=== PATIENT | male | born 1995 | race Caucasian/White ===

== ENCOUNTER 2024-12-11 14:28 | Inpatient (IN) | payer BC ==
[~2024-12-11] VITALS: Ht 180.3 cm; Wt 81.0 kg
[2024-12-11 14:40] VITALS: PULSE 98; RESP 16; O2SAT 98
--- NOTE | 2024-12-11 14:56 | ED.PDOC ---
HPI Comments 29y F who presents to the ED via EMS for chief complaint of palpitations. Pt states he was at home working outside and states while on his tractor, he started to feel his " heart race out of his chest" and felt he was going to pass out and went inside. Pt states he told his mother in law of his symptoms who is nurse and states pt was told to call EMS. EMS arrived on scene and pt was in SVT. EMS arrived on scene and pt was found to be in SVT and after EMS intervention, pt converted to sinus tachycardia and brought to the ED. Pt in the ED, noted to have equal respirations and regular in no noted distress and is alert and oriented x 4 and able to answer all questions. Pt otherwise denies any current chest pain, shortness of breath, nausea, vomiting, fever, cough or chills. Pt states he does have history of anxiety and takes medications for it. Pt otherwise in the ED, has stable vitals. Pt denies any other symptoms at this time. 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 Allergies: Coded Allergies: NO KNOWN ALLERGIES (Unverified , 10/19/13) Information Source: Patient, Emergency Med Personnel Mode of Arrival: EMS Brought in by: EMS Past Medical History PAST MEDICAL HISTORY: Denies Surgical History: Denies all surgeries Constitutional: denies: chills, diaphoresis, fatigue, fever, malaise, sweats, weakness, others EENTM: denies: blurred vision, double vision, ear bleeding, ear discharge, ear drainage, ear pain, ear ringing, eye pain, eye redness, hearing loss, mouth pain, mouth swelling, nasal discharge, nose bleeding, nose congestion, nose pain, photophobia, tearing, throat pain, throat swelling, voice changes, others Respiratory: denies: cough, hemoptysis, orthopnea, SOB at rest, shortness of breath, SOB with excertion, stridor, wheezing, others Cardiovascular: reports: palpitations; denies: chest pain, dizzy spells, diaphoresis, Dyspnea on exertion, edema, irregular heart beat, left arm pain, lightheadedness, PND, syncope, others Gastrointestinal: denies: abdomen distended, abdominal pain, blood streaked bowels, constipated, diarrhea, dysphagia, difficulty swallowing, hematemesis, melena, nausea, poor appetite, poor fluid intake, rectal bleeding, rectal pain, vomiting, others Genitourinary: denies: burning, dysuria, flank pain, frequency, hematuria, inc ontinence, penile discharge, penile sore, pain, testicle pain, testicle swelling, urgency, others Neurological: denies: dizziness, fainting, headache, left sided numbness, left sided weakness, numbness, paresthesia, pre-existing deficit, right sided numbness, right sided weakness, seizure, speech problems, tingling, tremors, weakness, others Musculoskeletal: denies: back pain, gout, joint pain, joint swelling, muscle pain, muscle stiffness, neck pain, others Integumetry: denies: bruises, change in color, change in hair/nails, dryness, laceration, lesions, lumps, rash, wounds, others Allergic/Immunocompromised: denies: Difficulty Healing, Frequent Infections, Hives, Itching, others Hematologic/Lymphatic: denies: anemia, blood clots, easy bleeding, easy bruising, swollen glands, others Endocrine: denies: excessive hunger, excessive sweating, excessive thirst, excessive urination, flushing, intolerance to cold, intolerance to heat, unexplained weight gain, unexplained weight loss, others Psychiatric: denies: anxiety, bipolar disorder, depression, hopeless, panic disorder, schizophrenia, sleepless, suicidal, others All Other Systems: Reviewed and Negative Physical Exam General Appearance: Moderate Distress HEENT: Normal ENT Inspection, Pharynx Normal, TMs Normal Neck: Full Range of Motion, Non-Tender, Normal, Normal Inspection Respiratory: Chest Non-Tender, Lungs Clear, No Accessory Muscle Use, No Respiratory Distress, Normal Breath Sounds Cardiovascular: No Edema, No JVD, No Murmur, No Gallop, Normal Peripheral Pulses, Regular Rate/Rhythm Breast Exam: Deferred Gastrointestinal: No Organomegaly, Non Tender, No Pulsatile Mass, Normal Bowel Sounds, Soft Genitalia: Deferred Pelvic: Deferred Rectal: Deferred Extremities: No calf tenderness, Normal capillary refill, Normal inspection, Normal range of motion, Non-tender, No pedal edema Musculoskeletal : Apperance: Normal Neurologic: Alert, electronics scale tester II-XII nml as Tested, No Motor Deficits, Normal Affect, Normal Mood, No Sensory Deficits Cerebellar Function: Normal Reflexes: Normal Skin: Dry, Normal Color, Warm Peripheral Pulses: 3+ Radial (R), 3+ Radial (L) Lymphatic: No Adenopathy Was a procedure done? Was a procedure done?: No CP Differential Dx Differential Diagnosis: A-fib, A-Flutter, Angina, Anxiety / Panic Attack, Atrial Dysrhythmia, Electrolyte Disorder, PVC's X-Ray, Labs, Meds, VS Vital Signs Date Time Temp Pulse Resp B/P (MAP) Pulse Ox O2 Delivery O2 Flow Rate FiO2 12/11/24 14:53 98.8 109 18 144/98 (113) 99 12/11/24 14:28 108 Lab Test 12/11/24 15:19 Range/Units White Blood Count Pending Red Blood Count Pending Hemoglobin Pending Hematocrit Pending Mean Corpuscular Volume Pending Mean Corpuscular Hemoglobin Pending Mean Corpuscular Hemoglobin Concent Pending Red Cell Distribution Width Pending Platelet Count Pending Mean Platelet Volume Pending Neutrophils (%) (Auto) Pending Lymphocytes (%) (Auto) Pending Monocytes (%) (Auto) Pending Basophils (%) (Auto) Pending Neutrophils # (Auto) Pending Lymphocytes # (Auto) Pending Monocytes # (Auto) Pending Sodium Level Pending Potassium Level Pending Chloride Level Pending Carbon Dioxide Level Pending Anion Gap Pending Blood Urea Nitrogen Pending Creatinine Pending Glomerular Filtration Rate Calc Pending BUN/Creatinine Ratio Pending Serum Glucose Pending Calcium Level Pending Total Bilirubin Pending Aspartate Amino Transferase (AST) Pending Alanine Aminotransferase (ALT) Pending Alkaline Phosphatase Pending Troponin I High Sensitivity Pending Total Protein Pending Albumin Pending CHEST RADIOGRAPH IMPRESSION: 1. No acute cardiopulmonary disease. Patient alert. Complaining have chest discomfort. Was in SVT prior to coming to the ER. Vitals stable. Converted prior to coming to the ER. EKG reviewed does show tachycardia. Vitals stable. Answering all questions. Sinus rhythm. Anxious. History of anxiety. Explained to the patient. Continue cardiac monitoring. Was given aspirin. Time of 1ST Reevaluation: 15:30 Reevaluation 1ST: Unchanged Patient Education/Counseling: Diagnosis, Treatment Family Education/Counseling: No Family Present Departure 1 Departure Time of Disposition: 15:56 Impression: Primary Impression: Supraventricular tachycardia Disposition: ADMITTED INPATIENT Admit to: Med Surg Condition: Guarded Critical Care Note Critical Care Time?: Yes (45 min-critical care time only) Stability Stability form required: No Heart Score Heart Score: Heart Score Response (Comments) Value History Slightly Suspicious 0 EKG Normal 0 Age <45 0 Risk Factors No known risk factors 0 Troponin Normal limit 0 Total 0 I personally scribed for TORREY CAMERON MD ([email or web address]) on 12/11/24 at 14:56. Electronically submitted by Kathrin Zaldivar ([email or web address]). I personally scribed for TORREY CAMERON MD ([email or web address]) on 12/11/24 at 15:02. Electronically submitted by Kathrin Zaldivar ([email or web address]). I personally scribed for TORREY CAMERON MD ([email or web address]) on 12/11/24 at 15:26. Electronically submitted by Kathrin Zaldivar ([email or web address]). TORREY CAMERON MD Dec 11, 2024 14:56
[2024-12-11] MEDS: SODIUM CHLORIDE 0.9% 1,000 ML IV ONE (15:00)
--- NOTE | 2024-12-11 15:13 | DVH ---
CHEST RADIOGRAPH Indication: PALPATTIONS Technique: Single frontal view of the chest was obtained Comparison: None FINDINGS: Lines and Tubes: None Lungs: No focal consolidation. Pleura: No effusion. No pneumothorax. Cardiomediastinal contours: Unremarkable Bones: No acute osseous abnormality. IMPRESSION: 1. No acute cardiopulmonary disease.
[2024-12-11 16:10] LABS: Alanine Aminotransferase 21 U/L (7-40); Albumin 4.5 g/dL (3.2-4.8); Alkaline Phosphatase 46 U/L (46-116); Anion Gap 8 (5-15); Aspartate Aminotransferase 16 U/L (13-40); BUN/Creatinine Ratio 12.7 (10.0-20.0); Bilirubin, Total 0.6 mg/dL (0.2-1.0); Blood Urea Nitrogen 13 mg/dL (9-23); Calcium 9.7 mg/dL (8.7-10.4); Carbon Dioxide 27 mmol/L (20-31); Glucose 88 mg/dL (74-106); Potassium 3.8 mmol/L (3.5-5.1); Sodium 142 mmol/L (136-145); Total Protein 6.6 g/dL (5.7-8.2)
[2024-12-11 16:19] LABS: Chloride 107 mmol/L (98-107)
[2024-12-11 16:25] LABS: Basophils # (auto) 0 10 ^3/uL (0-0.2); Basophils % (auto) 0.4 % (0.0-2.0); Eosinophils # (auto) 0 10 ^3/uL (0-0.8); Eosinophils % (auto) 0.2 % (0.0-7.0); Hematocrit 47.1 % (41.0-53.0); Hemoglobin 16.4 g/dL (13.5-17.5); Lymphocytes % (auto) 20.2 % (10.0-50.0); Mean Corpuscular Hemoglobin 31.2 pg (28.0-32.0); Mean Corpuscular Hgb Conc. 34.7 g/dL (32.0-36.0); Mean Corpuscular Volume 89.9 fL (80.0-100.0); Monocytes # (auto) 0.6 10 ^3/uL (0-1.3); Monocytes % (auto) 6.3 % (0.0-12.0); Neutrophils # (auto) 7.3 10 ^3/uL (1.6-8.6); Neutrophils % (auto) 72.9 % (37.0-80.0); Nucleated Red Blood Cells % 0.2 %; Platelet Count (auto) 226 10^3/uL (140-450); Red Blood Cells 5.24 10^6/uL (4.5-5.90); Red Cell Distribution Width 12.4 % (11.8-14.3)
[2024-12-11] MEDS: ASPirin 81 mg TAB PO ONE (16:30)
[2024-12-11 16:49] LABS: Urine Bacteria None Seen /hpf (None Seen); Urine WBC None Seen /hpf (0 - 3)
[2024-12-11 17:00] LABS: Urine Blood Negative /uL (Negative); Urine Clarity Clear (Clear); Urine Color Colorless (Yellow); Urine Protein, UAD Negative (Negative); Urine Specific Gravity 1.004 (1.001-1.035); Urine Squamous Epithelial Cell None Seen /hpf (<5); Urine Urobilinogen Normal (Negative); Urine pH 6.5 (5.0-9.0)
[2024-12-11] MEDS: ENOXAPARIN SOD 80 MG/0.8ML SYRINGE SC ONE (19:55)
[2024-12-11] MEDS ORDERED: ONDANSETRON HCL 4 MG/2 ML VIAL IV PRN (20:15)
[2024-12-11] MEDS ORDERED: DOCUSATE SOD 100 MG CAP PO PRN (20:15)
[2024-12-11] MEDS ORDERED: HYDROcodone-ACET 5/325MG TAB PO PRN (20:15)
[2024-12-11] MEDS ORDERED: ACETAMINOPHEN 325 MG TAB PO PRN (20:15)
--- NOTE | 2024-12-11 21:19 | DVHHP2 ---
History of Present Illness Reason for Visit: Palpitations History of Present Illness The patient is a 29-year-old male who denies past medical history presented to [facility] ED with complaint of palpitations. Patient reports symptoms started while on his tractor, feels his heart racing of his chest, near syncopal sensation, getting worse that EMS were called. When EMS arrived on the scene, patient was found to be in SVT and subsequently converted after intervention EN route to our facility ED. patient was seen and evaluated in the ED, laboratory data shows WBC 10.0, platelets 226, sodium 142, potassium 3.8, BUN 13, creatinine 1.02, GFR 102, glucose 88, troponin 72, blood pressure 144/98, heart rate 98, temperature 98.2 F, O2 saturation 97% on room air. Chest x-ray show no acute cardiopulmonary disease. Patient was given aspirin one sister mg p.o. x1 please see medication orders section in the computer. On my assessment, patient denies chest pain, no headache, no dizziness, no diaphoresis, no shortness of breath, no nausea, no vomiting, no fever, no chills . Patient was admitted for further evaluation and medical management. Past Medical History Denies past medical history Past Surgical History Denies all surgeries Family History Reviewed, noncontributory to the management of this case. Past Social History The patient lives at home, denies smoking, alcohol or illicit drugs abuse. Review of Systems Constitutional: No: Fever, Chills, Sweats, Weakness, Malaise, Other Eyes: No: Pain, Vision change, Conjunctivae inflammation, Eyelid inflammation, Other, Redness ENT: No: Ear pain, Ear discharge, Nose pain, Nose discharge, Nose congestion, Mouth pain, Mouth swelling, Throat pain, Throat swelling, Other Respiratory: No: Cough, Dry, Shortness of breath, SOB with excertion, Wheezing, Hemoptysis, Pleuritic Pain, Sputum, Wheezing, Other Cardiovascular: Palpitations; No: Chest Pain, Orthopnea, Paroxysmal Noc. Dyspnea, Edema, Lt Headedness, Other Gastrointestinal: No: Nausea, Vomiting, Abdominal Pain, Diarrhea, Constipation, Melena, Hematochezia, Other Genitourinary: No Dysuria, No Frequency, No Incontinence, No Hematuria, No Retention, No Other Musculoskeletal: No: other, neck pain, shoulder pain, arm pain, back pain, hand pain, leg pain, foot pain Skin: No: Rash, Lesions, Jaundice, Bruising, Other Neurological: No: Weakness, Numbness, Incoordination, Change in speech, Confusion, Seizures, Other Allergies: Coded Allergies: NO KNOWN ALLERGIES (Unverified , 10/19/13) Medications Current Medications Medications Dose Ordered Sig/Luanne Route Start Time Stop Time Status Last Admin Dose Admin Aspirin 81 mg DAILY PO 12/12/24 10:00 Sodium Chloride 10 ml Q8HR IV 12/11/24 22:00 Acetaminophen/ Hydrocodone Bitart 1 tab Q4HP PRN PO 12/11/24 20:15 Ondansetron HCl 4 mg Q4HP PRN IV 12/11/24 20:15 Docusate Sodium 100 mg BIDPRN PRN PO 12/11/24 20:15 Acetaminophen 650 mg Q6HP PRN PO 12/11/24 20:15 Exam Vital Signs Vital Signs Date Time Temp Pulse Resp B/P (MAP) Pulse Ox O2 Delivery O2 Flow Rate FiO2 12/11/24 19:30 98 16 121/87 (98) 84 12/11/24 16:00 98.2 98.2 12/11/24 14:40 Room Air* 0 21 General Appearance: Alert, Oriented X3, Cooperative, No acute distress HEENT: Atraumatic, PERRLA, EOMI, Mucous membr. moist/pink Respiratory: Clear to auscultation, Normal air movement Cardiovascular: Regular rate, Normal S1, Normal S2, No murmurs Abdominal: Normal bowel sounds, Soft, No tenderness, No hepatospenomegaly, No masses Extremities: No clubbing, No cyanosis, No edema, Normal pulses, No tenderness/swelling Skin: No rashes, No breakdown, No significant lesion Neuro: Normal gait, Normal speech, Strength at 5/5 X4 ext, Normal tone, Sensation intact, Cranial nerves 3-12 NL, Reflexes 2+ Psych/Mental Status: Mental status NL, Mood NL Labs/Xrays Labs Test 12/11/24 21:10 12/11/24 16:30 12/11/24 15:19 Range/Units Urine Color Colorless Yellow Urine Clarity Clear Clear Urine pH 6.5 5.0-9.0 Urine Specific [place] 1.004 1.001-1.035 Urine Protein Negative Negative Urine Ketones Negative Negative Urine Blood Negative Negative /uL Urine Nitrite Negative Negative Urine Bilirubin Negative Negative Urine Urobilinogen Normal Negative mg/dL Urine Leukocyte Esterase Negative Negative /uL Urine RBC <1 0 - 3 /hpf Urine WBC None seen 0 - 3 /hpf Urine Squamous Epithelial Cells None seen <5 /hpf Urine Bacteria None seen None Seen /hpf Urine Glucose Normal Normal mg/dL White Blood Count 10.0 4.4-10.8 10^3/uL Red Blood Count 5.24 4.5-5.90 10^6/uL Hemoglobin 16.4 13.5-17.5 g/dL Hematocrit 47.1 41.0-53.0 % Mean Corpuscular Volume 89.9 80.0-100.0 fL Mean Corpuscular Hemoglobin 31.2 28.0-32.0 pg Mean Corpuscular Hemoglobin Concent 34.7 32.0-36.0 g/dL Red Cell Distribution Width 12.4 11.8-14.3 % Platelet Count 226 140-450 10^3/uL Mean Platelet Volume 7.3 6.9-10.8 fL Neutrophils (%) (Auto) 72.9 37.0-80.0 % Lymphocytes (%) (Auto) 20.2 10.0-50.0 % Monocytes (%) (Auto) 6.3 0.0-12.0 % Eosinophils (%) (Auto) 0.2 0.0-7.0 % Basophils (%) (Auto) 0.4 0.0-2.0 % Neutrophils # (Auto) 7.3 1.6-8.6 10 ^3/uL Lymphocytes # (Auto) 2.0 0.4-5.4 10 ^3/uL Monocytes # (Auto) 0.6 0-1.3 10 ^3/uL Eosinophils # (Auto) 0 0-0.8 10 ^3/uL Basophils # (Auto) 0 0-0.2 10 ^3/uL Nucleated Red Blood Cells 0.2 % Sodium Level 142 136-145 mmol/L Potassium Level 3.8 3.5-5.1 mmol/L Chloride Level 107 98-107 mmol/L Carbon Dioxide Level 27 20-31 mmol/L Anion Gap 8 5-15 Blood Urea Nitrogen 13 9-23 mg/dL Creatinine 1.02 0.700-1.30 mg/dL Glomerular Filtration Rate Calc 102 >90 mL/min BUN/Creatinine Ratio 12.7 10.0-20.0 Serum Glucose 88 74-106 mg/dL Calcium Level 9.7 8.7-10.4 mg/dL Total Bilirubin 0.6 0.2-1.0 mg/dL Aspartate Amino Transferase (AST) 16 13-40 U/L Alanine Aminotransferase (ALT) 21 7-40 U/L Alkaline Phosphatase 46 46-116 U/L Total Protein 6.6 5.7-8.2 g/dL Albumin 4.5 3.2-4.8 g/dL PATIENT: MAGUE VUONG ACCT: [id number] UNIT: [id number] : 1995 LOC: ER ROOM / BED: / AGE / SEX: 29 / M ADM STATUS: REG ER SERVICE [id number] ORDERING PHYSICIAN: TORREY CAMERON MD PROCEDURE(s): CXRP - CHEST PORTABLE REASON: PALPATTIONS ORDER NUMBER(s): [id number], ACCESSION NUMBER(s): [id number] CHEST RADIOGRAPH Indication: PALPATTIONS Technique: Single frontal view of the chest was obtained Comparison: None FINDINGS: Lines and Tubes: None Lungs: No focal consolidation. Pleura: No effusion. No pneumothorax. Cardiomediastinal contours: Unremarkable Bones: No acute osseous abnormality. IMPRESSION: 1. No acute cardiopulmonary disease. Assessment/Plan Assessment/Plan Palpitations Elevated troponin Supraventricular tachycardia Plan 1. Admit to telemetry unit 2. Breathing treatment 3. Pain control management 4. Management of fluids and electrolytes 5. Consultation for Cardiology 6. Diagnostic tests chest x-ray 7. DVT prophylaxis-on aspirin 8. Repeat labs CBC, CMP in a.m. 9. Continue with current medical management 10. Treatment plan discussed with patient and RN. Patient verbalized understanding. Plan discussed with: Patient, Other (RN) My Orders Orders - VENUS GOLDEN DNP Procedure Category Date Status Time Troponin-I Hs LAB 12/11/24 In Process 20:14 Troponin-I Hs LAB 12/11/24 Logged 23:14 Troponin-I Hs LAB 12/12/24 Verified 02:00 Troponin-I Hs LAB 12/12/24 Verified 06:00 Aspirin Tablet PHA 12/12/24 In Process 10:00 * Cardiology Consult CONS 12/11/24 Transmitted 20:14 Allergies TOM 12/11/24 In Process 20:14 Code Status CODE 12/11/24 Transmitted 20:14 Sodium Chloride Lock PHA 12/11/24 In Process (Saline Lock Ns) 22:00 Oxygen Per Hour RT 12/11/24 Transmitted 20:14 Hydrocodone-Acet PHA 12/11/24 In Process 5/325mg Tab ([place] 20:15 Ondansetron Hcl PHA 12/11/24 In Process (Zofran) 20:15 Docusate Sodium PHA 12/11/24 In Process Capsule (Colace 20:15 Complete Blood Count LAB 12/12/24 Verified 04:00 Comprehensive LAB 12/12/24 Verified Metabolic Panel 04:00 Cardiac DIET 12/12/24 Transmitted Diet-2gna,Lofat,Lochol Breakfast Condition: Serious TOM 12/11/24 In Process 20:14 Acetaminophen Tablet PHA 12/11/24 In Process (Tylenol Tablet) 20:15 Bedrest With Bathroom TOM 12/11/24 In Process Privileg 20:14 Sequential TOM 12/11/24 In Process Compression Device Problem List: (1) Palpitations (2) Elevated troponin (3) Supraventricular tachycardia Date of Service: Dec 11, 2024 Billing Provider: VENUS GOLDEN DNP Common Visit Codes: 10365-[id number] INP/OBS CARE (HIGH) VENUS GOLDEN DNP Dec 11, 2024 21:19
[2024-12-11] MEDS ORDERED: NITROGLYCERIN 0.4 MG SL TAB SL PRN (21:30)
[2024-12-11] MEDS ORDERED: MORPHINE SULFATE INJ 2 MG/ml SYRG IV PRN (21:30)
[2024-12-11] MEDS: SODIUM CHLOR 0.9% PF (SALINE LOCK) 10ML VIAL/SYR IV SCH (22:12)
[2024-12-11] MEDS: PARoxetine 20 MG TAB PO ONE (23:38)
[2024-12-11] MEDS: NICOTINE 21MG/24 HR TOPICAL PATCH TD ONE (23:38)
[2024-12-12] VITALS (7 sets, daily range): BP systolic 119–139; BP diastolic 71–80; PULSE 76–110; RESP 16–18; TEMP 97.8–98; O2SAT 95–98
--- NOTE | 2024-12-12 01:51 | ECG ---
[facility] Test Date: 2024-12-11 Test Time: 14:27:25 Pat Name: MAGUE VUONG Department: er Room: [address] [place] [address] Gender: M Home Health Registered Nurse: zane : 1995 Requested By: TORREY CAMERON Order Number: [id number] Reading MD: Measurements Intervals Hilliards Rate: 108 P: 47 OH: 139 QRS: 49 QRSD: 90 T: 53 QT: 324 QTc: 435 Interpretive Statements Sinus tachycardia Probable left atrial enlargement Please click the below link to view image of tracing.
[2024-12-12 04:36] LABS: Basophils # (auto) 0 10 ^3/uL (0-0.2); Basophils % (auto) 0.4 % (0.0-2.0); Eosinophils # (auto) 0.1 10 ^3/uL (0-0.8); Eosinophils % (auto) 0.8 % (0.0-7.0); Hematocrit 43.4 % (41.0-53.0); Hemoglobin 15.4 g/dL (13.5-17.5); Lymphocytes # (auto) 2.8 10 ^3/uL (0.4-5.4); Lymphocytes % (auto) 35.9 % (10.0-50.0); Mean Corpuscular Hemoglobin 32.3 pg (28.0-32.0); Mean Corpuscular Hgb Conc. 35.5 g/dL (32.0-36.0); Mean Corpuscular Volume 90.8 fL (80.0-100.0); Monocytes # (auto) 0.7 10 ^3/uL (0-1.3); Monocytes % (auto) 8.7 % (0.0-12.0); Neutrophils # (auto) 4.2 10 ^3/uL (1.6-8.6); Neutrophils % (auto) 54.2 % (37.0-80.0); Nucleated Red Blood Cells % 0.1 %; Platelet Count (auto) 208 10^3/uL (140-450); Red Blood Cells 4.78 10^6/uL (4.5-5.90); Red Cell Distribution Width 12.4 % (11.8-14.3); White Blood Cell 7.7 10^3/uL (4.4-10.8)
[2024-12-12 04:51] LABS: Alanine Aminotransferase 19 U/L (7-40); Albumin 4.1 g/dL (3.2-4.8); Anion Gap 6 (5-15); BUN/Creatinine Ratio 12.5 (10.0-20.0); Bilirubin, Total 0.7 mg/dL (0.2-1.0); Blood Urea Nitrogen 13 mg/dL (9-23); Calcium 9.4 mg/dL (8.7-10.4); Carbon Dioxide 27 mmol/L (20-31); Glucose 85 mg/dL (74-106); Sodium 141 mmol/L (136-145); Total Protein 6.3 g/dL (5.7-8.2)
[2024-12-12 04:54] LABS: Alkaline Phosphatase 40 U/L (46-116); Aspartate Aminotransferase 13 U/L (13-40); Chloride 108 mmol/L (98-107)
[2024-12-12] MEDS: NICOTINE 21MG/24 HR TOPICAL PATCH TD SCH (08:49)
[2024-12-12] MEDS: ASPirin 81 mg TAB PO SCH (10:35)
--- NOTE | 2024-12-12 12:06 | DVHSR ---
APPROVED REPORT EXAM: Two-dimensional and M-mode echocardiogram with Doppler and color Doppler. Blood Pressure: 119/71 mmHg INDICATION SVT RISK FACTORS Height: 70, Weight: 178 DIMENSIONS LVDd4.8 (3.8-5.7cm)LA (2D)3.8 (1.9-4.0cm)Aortic Root3.3 (2.0-3.7cm) LVDs3.5 (2.5-4.0cm)LA (MM) (1.9-4.0cm)Aortic Cusp Exc1.9 (1.5-2.0cm) EF (%) 54.0 (55-70%)Rt. Atrium3.8 (1.9-4.0cm)Asc. Aorta cm IVSd1.0 (0.7-1.1cm)RV (D) (1.8-2.4cm) PWd1.1 (0.7-1.1cm) Mitral Valve MitralMitral Stenosis E wave0.68m/sMV Mean GR.mmHg A wave0.52m/sMV Peak GR.mmHg E/A ratio1.32D MVAcm2 DECEL [id number] 1/2 [id number] IVRTmsDop MVA4.29cm2 Aortic Valve Aortic ValveAortic Stenosis V11.07m/Giovany Mean GR.3mmHg V21.25m/Giovany Peak GR.6mmHg LVOT Diameter2.2 (1.8-2.4cm)Doppler AVA3.25cm2 Pulmonic Valve V20.93m/s Conclusion LV EJECTION FRACTION IS 70% NORMAL VALVES NORMAL RV FUNCTION NO EFFUSION
--- NOTE | 2024-12-12 15:25 | DVHINCON2 ---
Date Seen: Dec 12, 2024 Referring Physician Annabelle Reason for Consultation SVT History of Present Illness 29-year-old male with no significant past medical history presents to the hospital with chest pain and palpitations. Patient states he was working out in the [place] on a [place] when he had also an onset of palpitations that continued and transition to chest pressure the noted to be retrosternal, nonradiating, const ant, associated with some shortness of breath. Patient states went inside and was trying to relax and thought it was due to his history of anxiety. Patient had family member come and assess him as they were nurse and noted that his heart rate was too high to be assessed and blood pressure machine was not taking his blood pressure therefore EMS was called. Patient was found to be in SVT and was converted in route to facility possibly with vasovagal maneuvers. Patient states he has been following up with PCP for possible anxiety as he has been having certainly palpitations for the last 6 months. Of note patient states that he has to use high doses of caffeine though stopped approximately 3 months ago. Patient denies any smoking, drinking, or illicit drug use. Patient does note to vaping nicotine. Upon evaluation in the ER patient noted to have troponins initially negative then trending 72, 93, 96, 79, 66. EKG reviewed and shows sinus tachycardia at 108 beats per minute. Past Medical History Denies past medical history. Past Surgical History Denies previous cardiac surgeries Family History Denies pertinent family cardiac history Social History Denies alcohol, smoking tobacco, or illicit drug use, does endorse he vapes nicotine. Allergies: Coded Allergies: NO KNOWN ALLERGIES (Unverified , 10/19/13) Current Medications Current Medications Medications (Trade) Dose Ordered Sig/Luanne Route PRN Reason Start Time Stop Time Status Last Admin Aspirin 81 mg DAILY PO 12/12/24 10:00 12/12/24 10:35 Sodium Chloride (Saline Lock Ns) 10 ml Q8HR IV 12/11/24 22:00 12/12/24 05:42 Acetaminophen/ Hydrocodone Bitart ([place] 5/325MG Tab) 1 tab Q4HP PRN PO MODERATE PAIN (4-6 PAIN SCALE) 12/11/24 20:15 Ondansetron HCl (Zofran) 4 mg Q4HP PRN IV NAUSEA / VOMITING 12/11/24 20:15 Docusate Sodium (Colace Capsule) 100 mg BIDPRN PRN PO FOR CONSTIPATION 12/11/24 20:15 Acetaminophen (Tylenol Tablet) 650 mg Q6HP PRN PO PAIN SCALE 1-3 OR TEMP>100.4 12/11/24 20:15 Nitroglycerin (Ntrostat Sublingual) 0.4 mg Q5MINP PRN SL FOR CHEST PAIN 12/11/24 21:30 Morphine Sulfate 2 mg Q30M PRN IV FOR CHEST PAIN 12/11/24 21:30 Nicotine (Nicoderm 21MG/ 24HR) 1 patch DAILY TD 12/12/24 10:00 Paroxetine HCl (Paxil Tablet) 10 mg HS PO 12/12/24 22:00 Review of Systems Constitutional: No: Fever, Chills, Sweats, Weakness, Malaise, Other Eyes: No: Pain, Vision change, Conjunctivae inflammation, Eyelid inflammation, Other, Redness ENT: No: Ear pain, Ear discharge, Nose pain, Nose discharge, Nose congestion, Mouth pain, Mouth swelling, Throat pain, Throat swelling, Other Respiratory: No: Cough, Dry, Shortness of breath, SOB with exertion, Wheezing, Hemoptysis, Pleuritic Pain, Sputum, Wheezing, Other Cardiovascular: ; No: Chest Pain Palpitations, Orthopnea, Paroxysmal Noc. Dyspnea, Edema, Lt Headedness, Other Gastrointestinal: No: Nausea, Vomiting, Abdominal Pain, Diarrhea, Constipation, Melena, Hematochezia, Other Genitourinary: No Dysuria, No Frequency, No Incontinence, No Hematuria, No Retention, No Other Musculoskeletal: neck pain; No: other, shoulder pain, arm pain, back pain, hand pain, leg pain, foot pain Skin: No: Rash, Lesions, Jaundice, Bruising, Other Neurological: Other (Dizziness, headache.); No: Weakness, Numbness, Incoordination, Change in speech, Confusion, Seizures Vital Signs Vital Signs Date Time Temp Pulse Resp B/P (MAP) Pulse Ox O2 Delivery O2 Flow Rate FiO2 12/12/24 12:42 97.8 76 16 126/71 (89) 98 97.8 12/12/24 07:30 Room Air* 0 21 Physical Exam General appearance: Patient is well-developed, well-nourished, in no acute distress. HEENT: Exam shows: Normocephalic, atraumatic, PERRLA, EOMI Neck: Supple, no bruits Chest: Equal chest excursion bilaterally. Breath sounds normal-no rales or wheezes. Heart: Rhythm: Regular rate; no murmur or gallop Abdomen: Exam shows: Soft, nontender, nondistended Musculoskeletal: No clubbing, no cyanosis, no lower extremity edema Dermatology: Skin warm, moist. Neurological: Exam shows: Alert and oriented x4, normal speech Available prior records, labs, EKG, rhythm strips reviewed and interpreted Labs/Diagnostic Data Labs Test 12/12/24 08:39 12/12/24 08:14 12/12/24 03:22 12/11/24 16:30 Range/Units Thyroid Stimulating Hormone (TSH) 1.02 0.55-4.78 uIU/mL Magnesium Level 1.8 1.6-2.6 mg/dL White Blood Count 7.7 4.4-10.8 10^3/uL Red Blood Count 4.78 4.5-5.90 10^6/uL Hemoglobin 15.4 13.5-17.5 g/dL Hematocrit 43.4 41.0-53.0 % Mean Corpuscular Volume 90.8 80.0-100.0 fL Mean Corpuscular Hemoglobin 32.3 H 28.0-32.0 pg Mean Corpuscular Hemoglobin Concent 35.5 32.0-36.0 g/dL Red Cell Distribution Width 12.4 11.8-14.3 % Platelet Count 208 140-450 10^3/uL Mean Platelet Volume 7.3 6.9-10.8 fL Neutrophils (%) (Auto) 54.2 37.0-80.0 % Lymphocytes (%) (Auto) 35.9 10.0-50.0 % Monocytes (%) (Auto) 8.7 0.0-12.0 % Eosinophils (%) (Auto) 0.8 0.0-7.0 % Basophils (%) (Auto) 0.4 0.0-2.0 % Neutrophils # (Auto) 4.2 1.6-8.6 10 ^3/uL Lymphocytes # (Auto) 2.8 0.4-5.4 10 ^3/uL Monocytes # (Auto) 0.7 0-1.3 10 ^3/uL Eosinophils # (Auto) 0.1 0-0.8 10 ^3/uL Basophils # (Auto) 0 0-0.2 10 ^3/uL Nucleated Red Blood Cells 0.1 % Sodium Level 141 136-145 mmol/L Potassium Level 4.0 3.5-5.1 mmol/L Chloride Level 108 H 98-107 mmol/L Carbon Dioxide Level 27 20-31 mmol/L Anion Gap 6 5-15 Blood Urea Nitrogen 13 9-23 mg/dL Creatinine 1.04 0.700-1.30 mg/dL Glomerular Filtration Rate Calc 100 >90 mL/min BUN/Creatinine Ratio 12.5 10.0-20.0 Serum Glucose 85 74-106 mg/dL Calcium Level 9.4 8.7-10.4 mg/dL Total Bilirubin 0.7 0.2-1.0 mg/dL Aspartate Amino Transferase (AST) 13 13-40 U/L Alanine Aminotransferase (ALT) 19 7-40 U/L Alkaline Phosphatase 40 L 46-116 U/L Troponin I High Sensitivity 66 *H </=54 ng/L Total Protein 6.3 5.7-8.2 g/dL Albumin 4.1 3.2-4.8 g/dL Urine Color Colorless Yellow Urine Clarity Clear Clear Urine pH 6.5 5.0-9.0 Urine Specific [place] 1.004 1.001-1.035 Urine Protein Negative Negative Urine Ketones Negative Negative Urine Blood Negative Negative /uL Urine Nitrite Negative Negative Urine Bilirubin Negative Negative Urine Urobilinogen Normal Negative mg/dL Urine Leukocyte Esterase Negative Negative /uL Urine RBC <1 0 - 3 /hpf Urine WBC None seen 0 - 3 /hpf Urine Squamous Epithelial Cells None seen <5 /hpf Urine Bacteria None seen None Seen /hpf Urine Glucose Normal Normal mg/dL Assessment SVT Mildly elevated troponin Chest pain Palpitation Plan/Recommendation * Likely type 2 CT in setting of SVT. Continue telemetry monitoring. Initiation of metoprolol low dose due to blood pressure, titrate as tolerated. * Echo with preserved LV and RV function, no significant valvular structural abnormalities. * Monitoring electrolytes keep K>4 and mg> 2 * TSH normal. * Follow up outpatient Cardiology for event monitoring. Recommend referral for EP for possible SVT ablation if uncontrolled with medication. Case Discussed with Dr Auguste. There is no further cardiac work-up indicated at this time. Continue recs as above. Outpatient follow-up for continued monitoring and possible EP referral. Recommend continue cessation of high energy drinks/caffeine use. Thank you for allowing us to participate in this patient's care. Will sign off. Critical care, time spent: 40 minutes This medical document was created using an electronic medical record system with voice recognition software and computerized dictation system. Although this document has been carefully reviewed, there might still be some phonetic and typographical errors. Occasional wrong-word or ``sound-alike substitutions may have occurred due to the inherent limitations of voice recognition software. These areas are purely typographical due to imperfections of the software programs and do not reflect any compromise in the patient's medical care. Please read the chart carefully and recognize, using context, where these substitutions have occurred. Thank you for allowing me to participate in the management of this patient. The treatment plan was discussed with and agreed upon by patient/family including requesting consultants and ordering of imaging/procedures. Plan discussed with: Patient NYHA Physical activity limitations: NA Date of Service: Dec 12, 2024 Billing Provider: TALIA VILLEGAS Cardiology Common Codes: [id number] INP/OBS CARE (High), 07078-[id number] CARE 30-74 MIN TALIA VILLEGAS Dec 12, 2024 15:25
[2024-12-12] MEDS ORDERED: MET25T PO (16:18)
[2024-12-12] MEDS: PARoxetine 20 MG TAB PO SCH (20:37)
[2024-12-12] MEDS: METOPROLOL TARTRATE 25 MG TAB PO SCH (20:37)
--- NOTE | 2024-12-12 21:20 | DVHDS2 ---
Discharge Summary Date of Admission Dec 11, 2024 at 21:17 Date of Discharge: Dec 12, 2024 Labs/Diagnostic Data: Laboratory Results Test 12/12/24 08:39 12/12/24 08:14 12/12/24 03:22 12/11/24 16:30 Thyroid Stimulating Hormone (TSH) 1.02 uIU/mL (0.55-4.78) Magnesium Level 1.8 mg/dL (1.6-2.6) White Blood Count 7.7 10^3/uL (4.4-10.8) Red Blood Count 4.78 10^6/uL (4.5-5.90) Hemoglobin 15.4 g/dL (13.5-17.5) Hematocrit 43.4 % (41.0-53.0) Mean Corpuscular Volume 90.8 fL (80.0-100.0) Mean Corpuscular Hemoglobin 32.3 pg (28.0-32.0) Mean Corpuscular Hemoglobin Concent 35.5 g/dL (32.0-36.0) Red Cell Distribution Width 12.4 % (11.8-14.3) Platelet Count 208 10^3/uL (140-450) Mean Platelet Volume 7.3 fL (6.9-10.8) Neutrophils (%) (Auto) 54.2 % (37.0-80.0) Lymphocytes (%) (Auto) 35.9 % (10.0-50.0) Monocytes (%) (Auto) 8.7 % (0.0-12.0) Eosinophils (%) (Auto) 0.8 % (0.0-7.0) Basophils (%) (Auto) 0.4 % (0.0-2.0) Neutrophils # (Auto) 4.2 10 ^3/uL (1.6-8.6) Lymphocytes # (Auto) 2.8 10 ^3/uL (0.4-5.4) Monocytes # (Auto) 0.7 10 ^3/uL (0-1.3) Eosinophils # (Auto) 0.1 10 ^3/uL (0-0.8) Basophils # (Auto) 0 10 ^3/uL (0-0.2) Nucleated Red Blood Cells 0.1 % Sodium Level 141 mmol/L (136-145) Potassium Level 4.0 mmol/L (3.5-5.1) Chloride Level 108 mmol/L (98-107) Carbon Dioxide Level 27 mmol/L (20-31) Anion Gap 6 (5-15) Blood Urea Nitrogen 13 mg/dL (9-23) Creatinine 1.04 mg/dL (0.700-1.30) Glomerular Filtration Rate Calc 100 mL/min (>90) BUN/Creatinine Ratio 12.5 (10.0-20.0) Serum Glucose 85 mg/dL (74-106) Calcium Level 9.4 mg/dL (8.7-10.4) Total Bilirubin 0.7 mg/dL (0.2-1.0) Aspartate Amino Transferase (AST) 13 U/L (13-40) Alanine Aminotransferase (ALT) 19 U/L (7-40) Alkaline Phosphatase 40 U/L (46-116) Troponin I High Sensitivity 66 ng/L (</=54) Total Protein 6.3 g/dL (5.7-8.2) Albumin 4.1 g/dL (3.2-4.8) Urine Color Colorless (Yellow) Urine Clarity Clear (Clear) Urine pH 6.5 (5.0-9.0) Urine Specific [place] 1.004 (1.001-1.035) Urine Protein Negative (Negative) Urine Ketones Negative (Negative) Urine Blood Negative /uL (Negative) Urine Nitrite Negative (Negative) Urine Bilirubin Negative (Negative) Urine Urobilinogen Normal mg/dL (Negative) Urine Leukocyte Esterase Negative /uL (Negative) Urine RBC <1 /hpf (0 - 3) Urine WBC None seen /hpf (0 - 3) Urine Squamous Epithelial Cells None seen /hpf (<5) Urine Bacteria None seen /hpf (None Seen) Urine Glucose Normal mg/dL (Normal) Other Laboratory Tests 12/12/24 03:22 Brief Hx & Hospital Course: 29 M with palpitation, found to be in svt, seen in cardio, started on beta romeo. follow outpatient with cardio and dc clinic. meds sent. Condition at Discharge: Good Final Diagnosis/Problems List SVT Discharge Disposition: Home Discharge Instruct/Medications Diet: Cardiac 2g Na,low cholest Activity: No Restrictions, As Tolerated Follow Up/Referral: cardiology EP Medications: metoprolol 33 Discharge Statement: "Patient was advised to return to the ER or call 911 if any headaches, dizziness, shortness of breath, chest pain, abdominal pain, bleeding, fevers, or worsening of medical condition. Patient was counseled about treatment plan, medications, possible side effects, patientverbalized understanding. All questions were answered to the best of my ability. This discharge took greater then 30 minutes in planning, reviewing documentation, counseling the patient, and discussing with other team members." ASSESSMENT ASSESSMENT Assessment chest pain 2/2 svt tachy induced type 2 MA Date of Service: Dec 12, 2024 Billing Provider: MEKA LINARES MD Common Visit Codes: 38295-SMP/OBS DISCH DAY >30min MEKA LINARES MD Dec 12, 2024 21:20
--- NOTE | 2024-12-12 22:24 | DVHINCON2 ---
Date Seen: Dec 12, 2024 Referring Physician Annabelle Reason for Consultation SVT History of Present Illness This is a 29-year-old male with no significant past medical history presents to the ED with complaints of chest pain and palpitations. Patient states he was working out in the yard on a tractor when he had also an onset of palpitations that continued and transition to chest pressure the noted to be retrosternal, nonradiating, constant, associated with some shortness of breath. Patient states he went inside and was trying to relax and thought it was due to his history of anxiety. Patient had a family member come and assess him as they were a nurse and noted that his heart rate was too high to be assessed and blood pressure machine was not taking his blood pressure therefore EMS was called. Thomas ma was found to be in SVT and was converted in route to facility possibly with vasovagal maneuvers. Patient states he has been following up with PCP for possible anxiety as he has been having certainly palpitations for the last 6 months. Of note patient states that he has to use high doses of caffeine though stopped approximately 3 months ago. Patient denies any smoking, drinking, or illicit drug use. Patient does note to vaping nicotine. Upon evaluation in the ER patient noted to have troponins initially negative then trending 72, 93, 96, 79, 66. EKG reviewed and shows sinus tachycardia at 108 beats per minute. Patient was admitted to the hospital. I am asked to consult on this patient. Family History: Patient reports no known family medical history. Allergies: Coded Allergies: NO KNOWN ALLERGIES (Unverified , 10/19/13) Home Meds Active Scripts Metoprolol Tartrate (Lopressor) 25 Mg Tb, 12.5 MG PO BID for 30 Days, #30 TAB Prov:MEKA LINARES MD 12/12/24 Current Medications Current Medications Medications (Trade) Dose Ordered Sig/Luanne Route PRN Reason Start Time Stop Time Status Last Admin Aspirin 81 mg DAILY PO 12/12/24 10:00 12/12/24 10:35 Sodium Chloride (Saline Lock Ns) 10 ml Q8HR IV 12/11/24 22:00 12/12/24 05:42 Acetaminophen/ Hydrocodone Bitart ([place] 5/325MG Tab) 1 tab Q4HP PRN PO MODERATE PAIN (4-6 PAIN SCALE) 12/11/24 20:15 Ondansetron HCl (Zofran) 4 mg Q4HP PRN IV NAUSEA / VOMITING 12/11/24 20:15 Docusate Sodium (Colace Capsule) 100 mg BIDPRN PRN PO FOR CONSTIPATION 12/11/24 20:15 Acetaminophen (Tylenol Tablet) 650 mg Q6HP PRN PO PAIN SCALE 1-3 OR TEMP>100.4 12/11/24 20:15 Nitroglycerin (Ntrostat Sublingual) 0.4 mg Q5MINP PRN SL FOR CHEST PAIN 12/11/24 21:30 Morphine Sulfate 2 mg Q30M PRN IV FOR CHEST PAIN 12/11/24 21:30 Nicotine (Nicoderm 21MG/ 24HR) 1 patch DAILY TD 12/12/24 10:00 Paroxetine HCl (Paxil Tablet) 10 mg HS PO 12/12/24 22:00 Metoprolol Tartrate (Lopressor Tablet) 12.5 mg BID PO 12/12/24 22:00 Review of Systems Constitutional: No: Fever, Chills, Sweats, Weakness, Malaise, Other Eyes: No: Pain, Vision change, Conjunctivae inflammation, Eyelid inflammation, Other, Redness ENT: No: Ear pain, Ear discharge, Nose pain, Nose discharge, Nose congestion, M outh pain, Mouth swelling, Throat pain, Throat swelling, Other Respiratory: No: Cough, Dry, Shortness of breath, SOB with exertion, Wheezing, Hemoptysis, Pleuritic Pain, Sputum, Wheezing, Other Cardiovascular: ; No: Chest Pain Palpitations, Orthopnea, Paroxysmal Noc. Dyspnea, Edema, Lt Headedness, Other Gastrointestinal: No: Nausea, Vomiting, Abdominal Pain, Diarrhea, Constipation, Melena, Hematochezia, Other Genitourinary: No Dysuria, No Frequency, No Incontinence, No Hematuria, No Retention, No Other Musculoskeletal: neck pain; No: other, shoulder pain, arm pain, back pain, hand pain, leg pain, foot pain Skin: No: Rash, Lesions, Jaundice, Bruising, Other Neurological: Other (Dizziness, headache.); No: Weakness, Numbness, Incoordination, Change in speech, Confusion, Seizures Vital Signs Vital Signs Date Time Temp Pulse Resp B/P (MAP) Pulse Ox O2 Delivery O2 Flow Rate FiO2 12/12/24 16:51 97.8 91 16 139/80 (99) 96 97.8 1/12/25 11:33 Room Air* 0 21 Physical Exam GENERAL: Awake, alert, oriented. LUNGS: Clear. CARDIOVASCULAR: Heart sounds are good. ABDOMEN: Soft. Labs/Diagnostic Data Labs Test 12/12/24 08:39 12/12/24 08:14 12/12/24 03:22 12/11/24 16:30 Range/Units Thyroid Stimulating Hormone (TSH) 1.02 0.55-4.78 uIU/mL Magnesium Level 1.8 1.6-2.6 mg/dL White Blood Count 7.7 4.4-10.8 10^3/uL Red Blood Count 4.78 4.5-5.90 10^6/uL Hemoglobin 15.4 13.5-17.5 g/dL Hematocrit 43.4 41.0-53.0 % Mean Corpuscular Volume 90.8 80.0-100.0 fL Mean Corpuscular Hemoglobin 32.3 H 28.0-32.0 pg Mean Corpuscular Hemoglobin Concent 35.5 32.0-36.0 g/dL Red Cell Distribution Width 12.4 11.8-14.3 % Platelet Count 208 140-450 10^3/uL Mean Platelet Volume 7.3 6.9-10.8 fL Neutrophils (%) (Auto) 54.2 37.0-80.0 % Lymphocytes (%) (Auto) 35.9 10.0-50.0 % Monocytes (%) (Auto) 8.7 0.0-12.0 % Eosinophils (%) (Auto) 0.8 0.0-7.0 % Basophils (%) (Auto) 0.4 0.0-2.0 % Neutrophils # (Auto) 4.2 1.6-8.6 10 ^3/uL Lymphocytes # (Auto) 2.8 0.4-5.4 10 ^3/uL Monocytes # (Auto) 0.7 0-1.3 10 ^3/uL Eosinophils # (Auto) 0.1 0-0.8 10 ^3/uL Basophils # (Auto) 0 0-0.2 10 ^3/uL Nucleated Red Blood Cells 0.1 % Sodium Level 141 136-145 mmol/L Potassium Level 4.0 3.5-5.1 mmol/L Chloride Level 108 H 98-107 mmol/L Carbon Dioxide Level 27 20-31 mmol/L Anion Gap 6 5-15 Blood Urea Nitrogen 13 9-23 mg/dL Creatinine 1.04 0.700-1.30 mg/dL Glomerular Filtration Rate Calc 100 >90 mL/min BUN/Creatinine Ratio 12.5 10.0-20.0 Serum Glucose 85 74-106 mg/dL Calcium Level 9.4 8.7-10.4 mg/dL Total Bilirubin 0.7 0.2-1.0 mg/dL Aspartate Amino Transferase (AST) 13 13-40 U/L Alanine Aminotransferase (ALT) 19 7-40 U/L Alkaline Phosphatase 40 L 46-116 U/L Troponin I High Sensitivity 66 *H </=54 ng/L Total Protein 6.3 5.7-8.2 g/dL Albumin 4.1 3.2-4.8 g/dL Urine Color Colorless Yellow Urine Clarity Clear Clear Urine pH 6.5 5.0-9.0 Urine Specific [place] 1.004 1.001-1.035 Urine Protein Negative Negative Urine Ketones Negative Negative Urine Blood Negative Negative /uL Urine Nitrite Negative Negative Urine Bilirubin Negative Negative Urine Urobilinogen Normal Negative mg/dL Urine Leukocyte Esterase Negative Negative /uL Urine RBC <1 0 - 3 /hpf Urine WBC None seen 0 - 3 /hpf Urine Squamous Epithelial Cells None seen <5 /hpf Urine Bacteria None seen None Seen /hpf Urine Glucose Normal Normal mg/dL Assessment SVT. Mildly elevated troponin. Chest pain. Palpitation. Plan/Recommendation I agree with your ongoing assessment and care of plan. Patient has been seen by William Johansen NP on my behalf, him and I discussed the plan with the patient. Outpatient follow-up for continued monitoring and possible EP referral. Recommend continue cessation of high energy drinks/caffeine use. Continue telemetry monitoring. Initiation of metoprolol low dose due to blood pressure, titrate as tolerated. Echo with preserved LV and RV function, no significant valvular structural abnormalities. Monitoring electrolytes keep K>4 and mg> 2 TSH normal. Follow up outpatient Cardiology for event monitoring. Recommend referral for EP for possible SVT ablation if uncontrolled with medication. Telemetry reviewed. Additional plan as per the hospital course. Plan discussed with: Patient NYHA Physical activity limitations: NA Date of Service: Dec 12, 2024 Billing Provider: MULU ORTIZ MD Cardiology Common Codes: [id number] INP/OBS CARE (High), [id number] CARE 30-74 MIN MULU ORTIZ MD Dec 12, 2024 18:43
== END 2024-12-12 21:30 | disposition home or self-care (01) | DRG 282 ==
LOC: EDBD 14:28 → ER 14:28 → EDSEX 14:28 → TELE 21:17 → TELE-WESTW 12-12 09:33
PROVIDERS: ADMIT Nurse Practitioner Family; ATTEND Nurse Practitioner Family
DX: I47.10 Supraventricular tachycardia, unspecified (principal); I21.A1 Myocardial infarction type 2; F17.290 Nicotine dependence, other tobacco product, uncomplicated; F41.9 Anxiety disorder, unspecified
CPT/HCPCS: 36415; 71045; 80053; 81001; 83735; 84439; 84443; 84484; 85025; 93005; 93306; G0378